=== PATIENT | female | born 1955 | race Hispanic/Latino ===

== ENCOUNTER 2016-11-23 21:13 | Emergency (ER) | payer BC ==
[2016-11-23 21:18] VITALS: TEMP 98.5
--- NOTE | 2016-11-23 21:44 | ED PDOC ---
Upper Extremity Pain/Injury Time Seen by Provider: 11/23/16 21:29 Chief Complaint (Nursing): Upper Extremity Problem/Injury Chief Complaint (Provider): fall, left arm pain History Per: Patient History/Exam Limitations: no limitations Onset/Duration Of Symptoms: Hrs Current Symptoms Are (Timing): Still Present Quality: "Pain" Additional History Per: Patient Additional Complaint(s): 61 y/o female brought in by EMS for eval of left arm pain status-post fall. Patient states she tripped on uneven concrete; used left arm to break fall. She notes not being able to move left upper arm due to pain. Denies numbness/ weakness left upper extremity. Past Medical History Reviewed: Historical Data, Nursing Documentation, Vital Signs Vital Signs: Last Vital Signs Temp 98.5 F 11/23/16 21:14 Pulse 97 H 11/23/16 21:14 Resp 20 11/23/16 21:14 BP 182/101 H 11/23/16 21:14 Pulse Ox 100 11/23/16 21:14 - Medical History PMH: GERD - Family History Family History: States: Unknown Family Hx - Living Arrangements Living Arrangements: With Family - Home Medications Home Medications: Ambulatory Orders Medication Instructions Recorded Ibuprofen [Motrin Tab] 800 mg PO Q8 PRN #15 tab 11/24/16 traMADol [Ultram] 50 mg PO Q8 PRN #10 tab 11/24/16 - Allergies Allergies/Adverse Reactions: Allergies Allergy/AdvReac Type Severity Reaction Status Date / Time Penicillins Allergy RASH Verified 11/23/16 21:14 Tetracyclines Allergy RASH Verified 11/23/16 21:14 Review of Systems ROS Statement: Except As Marked, All Systems Reviewed And Found Negative Musculoskeletal: Positive for: Arm Pain (left) Physical Exam - Reviewed Nursing Documentation Reviewed: Yes Vital Signs Reviewed: Yes - Physical Exam Appears: Positive for: Well, Non-toxic, Uncomfortable Head Exam: Positive for: ATRAUMATIC, NORMAL INSPECTION, NORMOCEPHALIC Skin: Positive for: Normal Color Eye Exam: Positive for: Normal appearance Cardiovascular/Chest: Positive for: Regular Rate, Rhythm Respiratory: Positive for: Normal Breath Sounds Pulses-Radial (L): 2+ Pulses-Radial (R): 2+ Extremity: Negative for: Normal ROM (unable to flex/extend left upper extremity due to pain shoulder/left upper arm; no reproducible pain), Tenderness, Deformity, Swelling Neurologic/Psych: Positive for: Alert, Oriented. Negative for: Motor/Sensory Deficits - ECG O2 Sat by Pulse Oximetry: 100 - Other Rad xray left shoulder X-Ray: Viewed By Me X-Ray Interpretation: + humeral head fx xray left humerus X-Ray: Viewed By Me X-Ray Interpretation: + humeral head fx - Progress ED Course And Treament: Patient declines pain medication at this time; xray's ordered EXAM: CT Left Upper Extremity Without Intravenous Contrast, Shoulder CLINICAL HISTORY: 61 years old, female; Injury or trauma; Fall; Initial encounter; Blunt trauma (contusions or hematomas; Shoulder; Left; Additional info: Humeral head FX TECHNIQUE: Axial computed tomography images of the left shoulder without intravenous contrast. This CT exam was performed using one or more of the following dose reduction techniques: automated exposure control, adjustment of the mA and/or kV according to patient size, and/or use of iterative reconstruction technique. Coronal and sagittal reformatted images were created and reviewed. COMPARISON: No relevant prior studies available. FINDINGS: Bones/joints: Comminuted fracture of the left humeral head and neck. Mild posterior and inferior subluxation of the humeral head. Soft tissues: Unremarkable. IMPRESSION: Comminuted fracture of the left humeral head and neck. Patient/ educated on findings, plan for posterior splint/sling and ortho follow up. Patient uncooperative during splint placement. Optimal position placed be technology engineer/checked by technical document writer. Distal NV/motor intact s/p splint application. Advised elevation. Ortho follow up. Rx ibuprofen, Tramadol provided. Return to ED for worsening/concerning symptoms. Disposition - Clinical Impression Clinical Impression: Humerus head fracture - Patient ED Disposition Is Patient to be Admitted: No Counseled Patient/Family Regarding: Studies Performed, Diagnosis, Need For Followup, Rx Given - Disposition Referrals: Felix Hernandez III, MD [Staff Provider] - Nahomy Cabrera MD [Staff Provider] - Disposition: Routine/Home Disposition Time: 02:05 Condition: STABLE Additional Instructions: Call Orthopedist today to schedule follow up appointment. Take medication as directed. Return to ED for worsening/concerning symptoms. Prescriptions: Ibuprofen [Motrin Tab] 800 mg PO Q8 PRN #15 tab PRN Reason: Pain, Moderate (4-7) traMADol [Ultram] 50 mg PO Q8 PRN #10 tab PRN Reason: Pain, Severe (8-10) Instructions: Arm Fracture in Adults (ED)
[2016-11-24 00:29] VITALS: BP 148/90; PULSE 92; RESP 18
[2016-11-24 00:51] VITALS: O2SAT 100
--- NOTE | 2016-11-24 10:04 | RAD ---
PROCEDURE: Radiographs of the Left Shoulder HISTORY: fall, pain COMPARISON: No prior. FINDINGS: BONES: There are comminuted fracture at the left humeral head extending to the humeral neck. JOINTS: There is a dislocation at the left glenohumeral joint. SOFT TISSUES: Normal. OTHER FINDINGS: None. IMPRESSION: Acute comminuted fractures at the left humeral head associated with dislocation.
--- NOTE | 2016-11-24 11:41 | CT ---
PROCEDURE: CT of the left shoulder/upper extremity without contrast. HISTORY: humeral head fx COMPARISON: Comparison is made to x-ray of the left shoulder and humerus dated 11/23/2016 TECHNIQUE: Axial and reformatted coronal and sagittal CT images of the left shoulder and left humerus were obtained without IV contrast administration. Total exam DLP: 309.39 FINDINGS: There are comminuted fracture at the lateral aspect of the left humeral head extending to the humeral neck. . No evidence of dislocation at the left glenohumeral joint. The AC joint is intact demonstrate mild osteoarthritic changes. No evidence of significant hematoma or joint effusion. IMPRESSION: Comminuted fractures at the lateral aspect of the left humeral head extending to the humeral neck. No evidence of dislocation. Preliminary report was submitted by [facility]
--- NOTE | 2016-11-24 14:21 | RAD ---
PROCEDURE: Radiographs of the left humerus. HISTORY: fall, pain COMPARISON: None. FINDINGS: BONES: Comminuted mildly displaced fractures at the left humeral head and neck are seen. SOFT TISSUES: Normal. OTHER FINDINGS: None. IMPRESSION: Acute comminuted slightly displaced fractures at the left humeral head and neck.
== END 2016-11-24 02:05 | disposition home or self-care (01) ==
LOC: H.ER 21:13
DX: S42.202A Unspecified fracture of upper end of left humerus, initial encounter for closed fracture (principal); W19.XXXA Unspecified fall, initial encounter; Y92.410 Unspecified street and highway as the place of occurrence of the external cause
CPT/HCPCS: 29125; 73030; 73060; 73200; 96372; 99285; J1885